=== PATIENT | female | born 1990 | race Two or more races ===

== ENCOUNTER 2018-04-25 22:20 | Emergency (ER) | payer OTHER ==
[~2018-04-25] VITALS: Ht 162.6 cm; Wt 68.0 kg
[~2018-04-25 22:20] MED LIST: FOLIC ACID0.4 MG PO; PRENATAL1 TAB PO
== END 2018-04-25 23:00 | disposition home or self-care (01) ==
LOC: ER 22:20
DX: J02.8 Acute pharyngitis due to other specified organisms (principal)